=== PATIENT | male | born 1990 | race Caucasian/White ===

== ENCOUNTER 2022-12-13 12:43 | Outpatient (CLI) | payer OTHER, SELFPAY ==
--- NOTE | ~2022-12-13 | XR_ITS ---
Left foot Technique: AP, oblique, and lateral views were obtained. Clinical History: Pain Findings: No acute fracture or dislocation is seen. There is apparent fusion across the first, second , and possibly third tarsometatarsal joints. Remaining joint spaces are intact. Soft tissues are unre markable. Impression: Probable fusion across the first, second, and possibly third tarsometatarsal joints. No acute fracture or dislocation. Reviewed, dictated and finalized at location M. Impression: Probable fusion across the first, second, and possibly third tarsometatarsal terri ints. No acute fracture or dislocation.
--- NOTE | ~2022-12-13 | XR_ITS ---
Left ankle Technique: AP, oblique, and lateral views were obtained. Clinical History: Pain Findings: No acute fracture or dislocation is seen. Osseous alignment is anatomic. There is apparent fusion across the first tarsal metatarsal joint. Ankle mortise and hindfoot articulations are unremar kable. Soft tissues are otherwise unremarkable. Impression: No acute abnormality. Probable fusion of the first tarsometatarsal joint. Reviewed, dictated and finalized at location M. Impression: No acute abnormality. Probable fusion of the first tarsometatarsal joint.
--- NOTE | ~2022-12-13 | XR_ITS ---
Cervical Spine: AP, lateral, open-mouth views Clinical History: Pain Findings: There is straightening of the normal cervical lordosis. The vertebral bodies and posterior elements appear intact. The intervertebral disc spaces are well maintained. Pre-vertebral soft tiss ues are unremarkable. Impression: Straightening of the normal cervical lordosis, otherwise unremarkable exam. Reviewed, dictated and finalized at location . Impression: Straightening of the normal cervical lordosis, otherwise unremarkable exam.
== END 2022-12-13 12:44 | disposition home or self-care (01) ==
LOC: ANHIMG 12:50
PROVIDERS: PCP Emergency Medicine; Visit Provider Emergency Medicine
DX: M54.2 Cervicalgia (principal); M25.572 Pain in left ankle and joints of left foot
CPT/HCPCS: 72050; 73610; 73630